=== PATIENT | female | born 1990 | race Native Hawaiian/Other Pacific Islander ===

== ENCOUNTER 2017-11-08 07:36 | Inpatient (IN) | payer OTHER ==
[2017-10-29 13:51] VITALS: BMI 18.8
[2017-11-08 08:32] LABS: BASO # 0.1 K/uL (0.0-0.2); BASO % 0.5 % (0.0-2.0); EOS # 0.1 K/uL (0.0-0.7); EOS % 0.6 % (0.0-4.0); HEMOGLOBIN 14.9 g/dL (12.0-16.0); MEAN CELL VOLUME 89.1 fl (81.0-99.0); MEAN CORPUSCULAR HEMOGLOBIN 30.1 pg (27.0-31.0); MEAN CORPUSCULAR HGB CONC 33.8 g/dL (33.0-37.0); MEAN PLATELET VOLUME 7.8 fl (7.2-11.7); MONO # 0.6 K/uL (0.0-0.8); MONO % 6.5 % (0.0-10.0); NEUT # 7.1 K/uL (1.8-7.0); NEUT % 72.4 % (50.0-75.0); NRBC % 0.1 % (0.0-0.0); RBC 4.96 Mil/uL (3.80-5.20); RED CELL DISTRIBUTION WIDTH 12.7 % (11.5-14.5); WHITE BLOOD COUNT 9.8 K/uL (4.8-10.8)
[2017-11-08] MEDS ORDERED: Bupivacaine HCl 0.5% PF (30 ml) Inj ONE (10:51)
[2017-11-08] MEDS ORDERED: Silver Nitrate Topical - Stick ONE (10:52)
[2017-11-08] MEDS ORDERED: Propofol 10 mg/ml Inj (20 ML) ONE ×2 (11:05→14:26)
[2017-11-08] MEDS ORDERED: ePHEDrine 50 mg/ml Inj ONE (11:06)
[2017-11-08] MEDS ORDERED: Midazolam 2 MG/2 ML VIAL ONE (11:06)
[2017-11-08] MEDS ORDERED: Succinylcholine 200 mg/10 ml Inj IV ONE (11:06)
[2017-11-08] MEDS ORDERED: Rocuronium 10 mg/ml (5 ml) ONE (11:06)
[2017-11-08] MEDS ORDERED: Dexamethasone 4 mg/1 ml ONE (12:09)
[2017-11-08] MEDS ORDERED: Bupivacaine 0.5% Inj(30mL) IJ ONE ×2 (12:13)
[2017-11-08] MEDS ORDERED: Lactated Ringer's 1,000 ML IV ONE ×3 (12:13→14:10)
[2017-11-08] MEDS ORDERED: Neostigmine 1:1000 (1 mg/ml) Inj ONE (14:06)
--- NOTE | 2017-11-08 14:25 | PCM.OP ---
Operative Report - Operative Report Date of Surgery/Procedure: 11/08/17 Time of Surgery/Procedure: 11:00 Surgeon: Dr. Eusebio Pedraza [place] Baggage Screener: Dr. Carter Palafox Anesthesia/Sedation: general/Dr. Espinal Pre-Operative Diagnosis: abdominal pain and endometriosis Post-Operative Diagnosis: intestinal involvement with endometriosis Indication for Surgery: as above Operative Findings: as above Procedure/Operation Description: 1-Excision perirectal endometriosis (times two) . 2-Appendectomy. Brief History: This 26 year old woman was already brought to the operating room by Dr. Palafox when he requested an intraoperative consultation for intestinal involvement of endometriosis. Description of the Procedure: The operation was already initiated by Dr. Palafox (separate dictation ). After huber control of the robotic console the rectum was carefully dissected from the rectovaginal space with blunt and sharpdissection with the aid of electrocautery. The lesions were ken and were removed separatly utilizing the same technique and sent to pathology separately. Once completed the areas inquestion had adeqaute hemostasis. The appenix was then retracted anteriorly and the mesentery dessicated with monopolar power to the base. The appendix was looped with three -0 vicryl endoloops, the appendix was trasected, bagged and sent to apthology separately. The operation was tehn turned ocver to Dr. Palafox (separate dictation). Estimated Blood Loss: 15 cc Complications: none Specimen: 1-perirectal endometriosis. 2-appendix Discharge & Condition: stable
[2017-11-08] MEDS ORDERED: Oxycodone/Acetaminophen 5/325 mg Tab PO PRN (14:27)
[2017-11-08] MEDS ORDERED: Lactated Ringer's 1,000 ML IV SCH ×2 (14:30→14:45)
[2017-11-08] MEDS ORDERED: HYDROmorphone 0.5 mg/0.5 ml ISec IVP PRN (14:44)
[2017-11-09 06:18] LABS: BASO % 0.1 % (0.0-2.0); HEMOGLOBIN 11.3 g/dL (12.0-16.0); LYMPH # 1.6 K/uL (1.0-4.3); LYMPH % 8.9 % (20.0-40.0); MEAN CELL VOLUME 88.7 fl (81.0-99.0); MEAN CORPUSCULAR HGB CONC 33.8 g/dL (33.0-37.0); MEAN PLATELET VOLUME 7.8 fl (7.2-11.7); MONO # 2.1 K/uL (0.0-0.8); MONO % 11.8 % (0.0-10.0); NEUT # 14.2 K/uL (1.8-7.0); NEUT % 79.2 % (50.0-75.0); PLATELET COUNT 221 K/uL (130-400); RBC 3.77 Mil/uL (3.80-5.20); RED CELL DISTRIBUTION WIDTH 12.5 % (11.5-14.5)
[2017-11-09 06:39] LABS: BLOOD UREA NITROGEN 9 mg/dl (7-17); GFR NON-AFRICAN AMERICAN > 60
[2017-11-09 07:48] VITALS: BP 101/69; PULSE 73; RESP 18; TEMP 98.3; O2SAT 99
[2017-11-09 10:59] LABS: LARGE PLATELETS PRESENT; LYMPHOCYTE 7 % (20-50); MONOCYTE 9 % (0-10); NEUTROPHIL 83 % (42-75); PLATELET ESTIMATE NORMAL (NORMAL); REACTIVE LYMPHOCYTES 1 % (0-0); TOTAL CELLS COUNTED 100
[2017-11-09 11:00] LABS: TOXIC GRANULATION PRESENT
[2017-11-09 11:01] LABS: HYPOCHROMIC SLIGHT
--- NOTE | 2017-11-09 12:07 | CP.PCM.PN ---
Subjective - Date & Time of Evaluation Date of Evaluation: 11/09/17 Time of Evaluation: 12:04 - Subjective Subjective: Patient states pain is controlled with pain medication. Was able to walk around , has been voiding q2h, tolerating diet. Objective - Vital Signs/Intake and Output Vital Signs (last 24 hours): Temp Pulse Resp BP Pulse Ox 98.3 F 73 18 101/69 99 11/09/17 07:46 11/09/17 07:46 11/09/17 07:46 11/09/17 07:46 11/09/17 07:46 - Medications Medications: Current Medications Lactated Ringer's (Lactated Ringer's) 1,000 mls @ 100 mls/hr IV .Q10H [facility] Last Admin: 11/09/17 00:35 Dose: 100 mls/hr Lactated Ringer's (Lactated Ringer's) 1,000 mls @ 125 mls/hr IV .Q8H [facility] Last Admin: 11/09/17 09:09 Dose: 125 mls/hr Ketorolac Tromethamine (Toradol) 30 mg IVP Q6H [facility] Last Admin: 11/09/17 08:42 Dose: 30 mg Morphine Sulfate (Morphine) 2 mg IVP Q4 PRN PRN Reason: Pain, severe (8-10) Last Admin: 11/09/17 00:29 Dose: 2 mg Ondansetron HCl (Zofran Inj) 4 mg IVP Q6 PRN PRN Reason: Nausea/Vomiting Last Admin: 11/09/17 08:50 Dose: 4 mg Oxycodone/Acetaminophen (Percocet 5/325 Mg Tab) 2 tab PO Q4H PRN PRN Reason: Pain, moderate (4-7) Stop: 11/11/17 14:28 Tramadol HCl (Ultram) 50 mg PO ONCE ONE Stop: 11/09/17 12:31 - Labs Labs: 11/09/17 05:55 11/09/17 05:55 - GI/Abdominal Exam GI & Abdominal Exam: Soft, Tenderness, Normal Bowel Sounds Assessment and Plan (1) Endometriosis Assessment & Plan: POD#1 s/p extensive excision of endometriosis d/c home today patient states she was already given pain medication rx encourage ambulation instructed to take colace with pain medication f/u 1 week d/w Dr. Palafox, agrees with above Status: Acute
--- NOTE | 2017-11-12 11:16 | OP ---
PROCEDURE DATE: 11/08/2017 SURGEON: Carter Palafox MD MORTGAGE LOAN CLOSER: Eusebio Pedraza MD ANESTHESIOLOGIST: Ying Espinal MD ANESTHETIC: General Endo PREOPERATIVE DIAGNOSES: 1. Incapacitating pelvic pain. 2. Incapacitating abdominal pain. 3. Abnormal uterine bleeding. 4. History of pelvic endometriosis. 5. History of previous failed medical surgical therapy. 6. History of severe endometriosis and pelvic adhesions. 7. Gastrointestinal and genitourinary symptoms. 8. Rule out interstitial cystitis. 9. Adenomyosis. POSTOPERATIVE DIAGNOSES: 1. Incapacitating pelvic pain. 2. Incapacitating abdominal pain. 3. Abnormal uterine bleeding. 4. History of pelvic endometriosis. 5. History of previous failed medical surgical therapy. 6. History of severe endometriosis and pelvic adhesions. 7. Gastrointestinal and genitourinary symptoms. 8. Rule out interstitial cystitis. 9. Adenomyosis. 10. Severe pelvic endometriosis. 11. Ovarian adhesions. 12. Bowel adhesions. 13. Subseptate uterus. 14. Mild bilateral hydroureters. OPERATION PERFORMED: 1. Examination under anesthesia. 2. Video_assisted hysteroscopy. 3. Hysteroscopic septoplasty. 4. Robotic da Tod laparoscopy. 5. Enterolysis. 6. Bilateral ureterolysis. 7. Bilateral salpingo_ovariolytis. 8. Multiple peritoneal biopsies and excision of endometriosis. 9. Treatment of endometriosis. 10. Shaving of endometriosis of the bowel. 11. Cystoscopy. 12. Bilateral ureteral catheterization and injection of IC-Green dye. Dr. Pedraza from General Surgery was consulted to perform 1-excision perirectal endometriosis (times two). 2-Appendectomy procedure and he will dictate that separately. COMPLICATIONS: None. SAMPLES: Linda-ureteral, Anterior rectal x2, Posterior cervical, Per-ureteral, LT & RT ovarian endometrioma, Appendix DRAINS: ESTIMATED BLOOD LOSS: Minimal. HISTORY: MD PROVIDES HISTORY FINDINGS: Genitalia: normal, external genitalia, cervix normal without lesions or polyps. Hysteroscopy showed evidence of a small septum of the fundus of the uterus and no other lesions visualized. Cystoscopy was performed to rule out endometriosis of bladder mucosa and also interstitial cystitis, also injury. The bladder was normal with no evidence of stone, trigonitis or cystitis. Positive jet flow visualized in both ureters. Laparoscopy was normal, gallbladder was normal, liver edges appeared to be normal. Ascending colon and transverse were normal. The appendix appeared to be abnormal with both fibrosis and thickening. There was evidence of severe adhesions, fibrosis and endometriosis of the rectovaginal septum and attachment of the bowel to the posterior aspect of the uterus and to both the right and left adnexa. Both ovaries were severely attached to the posterior aspect of the ureters with endometriosis and adhesions. Fallopian tubes appeared to have some inflammatory changes of adhesions, but overall appeared to be normal. Both ovaries appeared to be involved with scar. 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 There was also evidence of mild bilateral hydroureters. CONSENT: The patient had been thoroughly evaluated and counseled regarding pros and cons of the procedure, the reasonable alternative, and the possible complications. She understood and accepted the risks involved. Appropriate literature was provided to the patient. The patient was in understanding that given her history and presurgical exam, she knows that she was a high risk and average patient. She accepted all the risks involved and all the questions had been answered to her satisfaction. DESCRIPTION OF PROCEDURE: Initiation of the case: After adequate anesthesia was obtained, the patient was placed in the dorsal lithotomy position with extreme care of placement of the patient without hyperextension or hyperflexing the hips. At this point, the patient was prepped and draped, the surgeon was gowned and gloved. A time- out was taken according to the hospital procedure and the procedure was started. At this point, we performed the cystoscopy and bilateral ureteral catheterization. At this point we performed cystoscopy: A cystoscope was inserted into the bladder, under direct visualization and the bladder was visualized. The bladder was free of lesions, tumors. There was no evidence of interstitial cystitis, and there was only a mild amount of trigonitis. At this point, both ureters were identified and appeared to be in normal anatomical position. At this point, utilizing an open-ended 5-Greenlandic catheter, the left ureter was catheterized all the way to the distal ureter, and a 5 mL of IC-Green were injected into the distal ureter. Similarly, on the contralateral ureter, the ureter was catheterized all the way to the distal ureter, and a 5 mL of IC-Green were injected into the distal ureter. At this point, the stents were removed, and the hysteroscope was removed and a 16- Greenlandic Birch was placed into the bladder. At this point, we proceeded with a hysteroscopy: A speculum was placed in the vagina, and the anterior lip of the cervix was grasped. The cervix was dilated and a hysteroscope was inserted into the cavity. The cavity appeared to be of normal size, but there was evidence of a subseptum at the top of the uterus. At this point, we proceeded with excision of uterine septum. Once the septum was identified, the endoscopic scissors were inserted into the uterine cavity and a progressive dissection of the septum was performed with great care not to perforate the uterus and not to cause any bleeding. The procedure was basically bloodless and the septum was excised. At this point, we proceeded with placement of trocars and docking of the Da Tod Xi robot The surgeons were re-gowned and re-gloved, and an open laparoscopy was performed by making an incision below the umbilicus, and the fascia was incised , and the peritoneum was entered in the blunt fashion. The cannula was inserted and the abdomen was insufflated, and under direct visualization 3 additional ports were inserted, left upper quadrant, left mid quadrant and right upper quadrant. At this point, the da Tod Xi robot was brought into the field and docked, and the instruments were inserted under direct visualization. With extreme care not to injure the bowel or any other area. As per the dictation, the upper abdomen appeared to be normal with no evidence of any lesions. The pelvis had the findings described above, which included significant adhesions, fibrosis of the posterior cul-de-sac, significant endometriosis with deep endometriosis nodules. Both ovary adherent to both the ovarian fossas and the posterior aspect of the uterus with significant inflammatory changes. At this point, we proceeded with the left ureterolysis. The ureter appeared to dilated and it was clearly identified utilizing fluorescent technology. An incision was made on the peritoneum at the top of the pelvic brim, and incision was then carried down all the way opening the peritoneum and all the way down from the pelvic brim all the way down to the ovarian fossa extending the incision below the ovary. It was a progressive dissection where the ureter was progressively lateralized and the peritoneum medialized, thus freeing the ureter all the way down to the crossing of the uterine vessels. After this was done and the ureter was freed and lateralized and a large area of peritoneum, which had been opened up was excised and sent to pathology. At this point, after ureter had been identified, we were able to elevate the ovary and dissect it from the pelvic side wall in the ovarian fossa At this point, we proceeded with the left ovariolysis. The ovary was gently dissected and elevated off the ovarian fossa and area of fibrosis of endometriosis were exposed. At this point, we proceeded with the right ureterolysis. The ureter was identified and again utilizing florescent technology, the retroperitoneal space was entered and a full dissection was performed entering the retroperitoneal space and dissecting the ureter, removing the ureter laterally and the peritoneum medially. A full dissection was performed all the way down to the ovarian fossa, on the crossing of the uterine arteries. A large area of peritoneum containing endometriosis was also dissected and sent to Pathology. At this point, we proceeded with a right ovariolysis. The ovary was progressively elevated, areas of deep endometriosis and superficial endometriosis were dissected out and the ovary was finally elevated. At this point, we proceeded with a treatment of endometriosis and excision of endometriosis. On the left hand side, a large area of peritoneum, where containing endometriosis was excised in the ovarian fossa with the upper margin of the excision at the utero_ovarian ligament all the way down to the uterosacral ligament. Large areas of fibrosis were identified in posterior cul-de-sac and the rectovaginal space was affected with endometriosis and severe fibrosis. The rectovaginal area was then dissected and the space was opened, and we were able to dissect the rectum away from the posterior aspect of the cervix. Additional areas of endometriosis were dissected from the posterior aspect of the Uterus. At this point, we proceeded with excision of the endometriosis on the right hand side where similarly in a full excision of endometriosis was performed by performing incision from starting at the right utero_ovarian ligament all the way down to the right uterosacral ligament. At this point, Dr. Pedraza from General Surgery was called in and he performed excision perirectal endometriosis procedure, which she will dictate separately. At this point, it was checked for hemostasis and appeared to be excellent. All the endometriosis had been excised. At this point, we performed the ablation of inflamed peritoneum, utilizing the J_plasma device. There were inflammatory areas in the posterior aspect of the uterus, which were not endometriotic, but they were purely inflammatory and these were not excisable, as they were not endometriotic. Therefore, we proceeded with ablation of such area utilizing the J plasma. Once this was done, it was checked for hemostasis and appeared to be excellent. The consult was handed to Dr. Pedraza, who performed the appendectomy and he will dictate that separately. After this was done, it was checked for hemostasis and appeared to be excellent. The pelvis was irrigated. The da Tod Xi robot was removed. The abdomen desufflated. The instruments were removed. The incisions were closed in layers with 0 PDS for the fascia and 4-0 Monocryl for the skin. The patient was awakened up and taken to recovery room in excellent condition. Carter Palafox MD [facility]ITALNerissa
== END 2017-11-09 14:01 | disposition home or self-care (01) | DRG 742 ==
LOC: H.OPSURG 07:36 → H.MEDSURG1 14:27
PROVIDERS: ADMIT Obstetrics & Gynecology Reproductive Endocrinology; ATTEND Obstetrics & Gynecology Reproductive Endocrinology
PROC: 0TN64ZZ Release Right Ureter, Percutaneous Endoscopic Approach (ICD-10-PCS; 2017-11-08)
PROC: 0UN24ZZ Release Bilateral Ovaries, Percutaneous Endoscopic Approach (ICD-10-PCS; 2017-11-08)
PROC: 0DTJ4ZZ Resection of Appendix, Percutaneous Endoscopic Approach (ICD-10-PCS; 2017-11-08)
PROC: 0T9B80Z Drainage of Bladder with Drainage Device, Via Natural or Artificial Opening Endoscopic (ICD-10-PCS; 2017-11-08)
PROC: 8E0W8CZ Robotic Assisted Procedure of Trunk Region, Via Natural or Artificial Opening Endoscopic (ICD-10-PCS; 2017-11-08)
PROC: 0DNW4ZZ Release Peritoneum, Percutaneous Endoscopic Approach (ICD-10-PCS; principal; 2017-11-08 10:15)
PROC: 0U5B8ZZ Destruction of Endometrium, Via Natural or Artificial Opening Endoscopic (ICD-10-PCS; 2017-11-08 10:15)
PROC: 0DBW4ZZ Excision of Peritoneum, Percutaneous Endoscopic Approach (ICD-10-PCS; 2017-11-08 10:15)
PROC: 0TN74ZZ Release Left Ureter, Percutaneous Endoscopic Approach (ICD-10-PCS; 2017-11-08 10:15)
DX: N80.3 Endometriosis of pelvic peritoneum (principal); N13.4 Hydroureter; N73.6 Female pelvic peritoneal adhesions (postinfective); N80.0 Endometriosis of uterus; N80.1 Endometriosis of ovary; N80.4 Endometriosis of rectovaginal septum and vagina; N80.5 Endometriosis of intestine; R10.2 Pelvic and perineal pain; N93.9 Abnormal uterine and vaginal bleeding, unspecified; Z91.010 Allergy to peanuts; Z91.013 Allergy to seafood